=== PATIENT | female | born 1990 | race American Indian/Alaskan Native ===

== ENCOUNTER 2017-09-12 23:28 | Emergency (ER) | payer SELFPAY ==
[2017-09-12 23:35] VITALS: BP 149/97
[2017-09-13] MEDS ORDERED: MOTRIN PO ONE (00:46)
--- NOTE | 2017-09-13 00:50 | Emergency Department Report ---
<[address] - Last Filed: 09/13/17 00:46> ED ENT HPI - General Chief complaint: Earache Stated complaint: LEFT EAR PAIN Time Seen by Provider: 09/13/17 00:46 Source: patient Mode of arrival: Ambulatory Limitations: No Limitations - History of Present Illness Initial comments: 27-year-old -Indian female comes in complaining of left ear pain since yesterday. Patient reports that she is using home remedy of (white vinegar and alcohol) after doing that her pain has worsened. Patient does report that she has in a prescription for amoxicillin twice a day but has not picked up the prescription from [facility]. Patient denies any fever or chills no nausea no vomiting no ear drainage no hearing loss. She has no known drug allergies currently takes no medications on a daily basis. MD complaint: ear pain -: days(s) (1) Location: L ear Severity scale (0 -10): 10 Quality: sharp, constant Consistency: constant Improves with: none Worsens with: other (using home remedies such as white vinegar and alcohol) Associated Symptoms: denies: fever, cough, gum swelling, toothache, pain with swallowing, sore throat, tinnitus, hearing loss, discharge from ear, rhinorrhea - Related Data Home Medications Medication Instructions Recorded Confirmed Last Taken Beclomethasone Dipropionate [Qvar 2 inhalation IH BID 07/24/15 08/12/15 10:00 80MCG] 2 Labetalol [Normodyne TAB] 300 mg PO BID 08/12/15 08/12/15 08/12/15 Previous Rx's Medication Instructions Recorded Last Taken Type Albuterol Sulfate [Ventolin HFA] 2 puff IH Q4H PRN #1 hfa.aer.ad 03/16/15 02:00 Rx 2 puff Ciprofloxacin/Hydrocortisone 3 drop OT BID 7 Days #1 bottle 09/13/17 Unknown Rx [Ciprofloxacin HC OTIC] Ibuprofen [Motrin 800 MG tab] 800 mg PO TID PRN #30 tablet 09/13/17 Unknown Rx Allergies Allergy/AdvReac Type Severity Reaction Status Date / Time No Known Allergies Allergy Verified 05/24/15 16:33 ED Dental HPI - General Chief complaint: Earache Stated complaint: LEFT EAR PAIN Time Seen by Provider: 09/13/17 00:46 Source: patient Mode of arrival: Ambulatory Limitations: No Limitations - Related Data Home Medications Medication Instructions Recorded Confirmed Last Taken Beclomethasone Dipropionate [Qvar 2 inhalation IH BID 07/24/15 08/12/15 10:00 80MCG] 2 Labetalol [Normodyne TAB] 300 mg PO BID 08/12/15 08/12/15 08/12/15 Previous Rx's Medication Instructions Recorded Last Taken Type Albuterol Sulfate [Ventolin HFA] 2 puff IH Q4H PRN #1 hfa.aer.ad 03/16/15 02:00 Rx 2 puff Ciprofloxacin/Hydrocortisone 3 drop OT BID 7 Days #1 bottle 09/13/17 Unknown Rx [Ciprofloxacin HC OTIC] Ibuprofen [Motrin 800 MG tab] 800 mg PO TID PRN #30 tablet 09/13/17 Unknown Rx Allergies Allergy/AdvReac Type Severity Reaction Status Date / Time No Known Allergies Allergy Verified 05/24/15 16:33 ED Review of Systems ROS: Stated complaint: LEFT EAR PAIN Other details as noted in HPI Comment: All other systems reviewed and negative ENT: ear pain ED Past Medical Hx - Past Medical History Hx Hypertension: No Hx Congestive Heart Failure: No Hx Diabetes: No Hx Deep Vein Thrombosis: No Hx Renal Disease: Yes Hx Sickle Cell Disease: No Hx Headaches / Migraines: Yes Hx Seizures: No Hx Asthma: Yes Hx COPD: No Hx HIV: No Additional medical history: reactive airway disease. Preclampsia with last preg. Ab0 - Surgical History Additional Surgical History: left ankle--ligament repair - Social History Smoking Status: Never Smoker Substance Use Type: None - Medications Home Medications: Home Medications Medication Instructions Recorded Confirmed Last Taken Type Albuterol Sulfate [Ventolin HFA] 2 puff IH Q4H PRN #1 hfa.aer.ad 03/16/1507/24/15 02:00 Rx 2 puff Beclomethasone Dipropionate [Qvar 2 inhalation IH BID 07/24/15 08/12/15 10:00 History 80MCG] 2 Labetalol [Normodyne TAB] 300 mg PO BID 08/12/15 08/12/15 08/12/15 History Ciprofloxacin/Hydrocortisone 3 drop OT BID 7 Days #1 bottle 09/13/17 Unknown Rx [Ciprofloxacin HC OTIC] Ibuprofen [Motrin 800 MG tab] 800 mg PO TID PRN #30 tablet 09/13/17 Unknown Rx ED Physical Exam - General Limitations: No Limitations General appearance: alert, in no apparent distress - Head Head exam: Present: atraumatic, normocephalic - Eye Eye exam: Present: PERRL, EOMI - Expanded ENT Exam Expanded TM/Canal exam: Erythema: Left TM, Effusion: Left TM, Loss of Landmarks: Left TM , Canal Tenderness: Left TM - Neck Neck exam: Present: normal inspection, full ROM. Absent: lymphadenopathy - Respiratory Respiratory exam: Present: normal lung sounds bilaterally. Absent: respiratory distress - Cardiovascular Cardiovascular Exam: Present: regular rate, normal rhythm. Absent: systolic murmur, diastolic murmur, rubs, gallop ED Course Vital Signs 09/12/17 09/12/17 09/13/17 23:28 23:52 00:49 Temperature 98.9 F 98.9 F Pulse Rate 83 81 Respiratory 18 18 18 Rate Blood Pressure 149/97 149/97 O2 Sat by Pulse 98 98 Oximetry ED Medical Decision Making - Medical Decision Making Patient's been evaluated by this provider fast track. We'll give patient ibuprofen 800 mg now for pain management. Discussed the patient to fill the prescription for amoxicillin from [facility]. We'll prescribe patient ear drops for external otitis. Critical care attestation.: If time is entered above; I have spent that time in minutes in the direct care of this critically ill patient, excluding procedure time. ED Disposition Disposition: DC-01 TO HOME OR SELFCARE Is pt being admited?: No Does the pt Need Aspirin: No Condition: Stable Instructions: Otitis Externa (ED), Otitis Media (ED) Additional Instructions: Start her amoxicillin prescription that she will bulk picker from [facility] as well as used eyedrops antibiotics for your left ear. If her symptoms persist or gets worse please follow up with her primary care provider. Prescriptions: Ciprofloxacin/Hydrocortisone [Ciprofloxacin HC OTIC] 3 drop OT BID 7 Days #1 bottle Ibuprofen [Motrin 800 MG tab] 800 mg PO TID PRN #30 tablet PRN Reason: Pain Referrals: PRIMARY CARE, [Primary Care Provider] - 3-5 Days [facility] [Provider Group] - 3-5 Days Forms: Accompanied Note, Work/School Release Form(ED) <FATEMEH WILLETT - Last Filed: 09/13/17 11:33> ED Medical Decision Making - Medical Decision Making I was available for consultations at all times during the patient stay. I did not personally see and was not involved in the care of the patient. Shan Willett MD
== END 2017-09-13 01:00 | disposition home or self-care (01) ==
LOC: ED 23:28
DX: H92.02 Otalgia, left ear (principal); J45.909 Unspecified asthma, uncomplicated; G43.909 Migraine, unspecified, not intractable, without status migrainosus
CPT/HCPCS: 99282

== ENCOUNTER 2017-12-13 12:01 | Emergency (ER) | payer SELFPAY ==
[2017-12-13] MEDS ORDERED: TYLENOL PO ONE (15:20)
--- NOTE | 2017-12-13 15:23 | Emergency Department Report ---
Chief Complaint: Nausea/Vomiting/Diarrhea Stated Complaint: SICK FEELING/HEAD ACHE Time Seen by Provider: 12/13/17 15:12 - HPI History of Present Illness: 27-year-old AA female presents to the emergency department with complaint of a dull persistent posterior headache. She denies any vision change, vomiting, fever or neurological deficits. Patient does present with some elevated blood pressure and says she only has a history of hypertension during with preeclampsia. She denies being currently but says it is possible. She has not taken anything for her symptoms. Her sedation. Currently it is 4 out of 10 in intensity. - ROS Review of Systems: Positive for headache, nausea without vomiting Negative for vomiting, fever, photophobia or vision change - Exam Vital Signs: Vital Signs 12/13/17 12:11 Temperature 98.8 F Pulse Rate 84 Respiratory 16 Rate Blood Pressure 172/102 O2 Sat by Pulse 98 Oximetry Physical Exam: Pupils equal and reactive to light bilaterally. Extraocular motion intact. No nystagmus. Heart and lung sounds are normal to auscultation. Patient is awake and oriented. MSE screening note: Focused history and physical exam performed. Due to findings the following was ordered: Patient will be given some Tylenol to try and treat her headache. She will have a test. If the pain does not resolve, will consider imaging. We 'll continue to monitor the blood pressure. ED Disposition for MSE Condition: Stable Referrals: PRIMARY CARE, [Primary Care Provider] - 3-5 Days
[2017-12-13 15:48] LABS: HCG Qualitative,Urine Positive (Negative)
--- NOTE | 2017-12-13 16:00 | Emergency Department Report ---
ED Dysuria HPI - HPI Chief Complaint: Nausea/Vomiting/Diarrhea Stated Complaint: SICK FEELING/HEAD ACHE SUSPECTS SHE MAY BE Time Seen by Provider: 12/13/17 15:12 Duration: 3 Days Severity: None Symptoms: Dysuria: No, Frequency: No, Suprapubic Pain: No, Flank Pain: No, Fever : No, Hematuria: No, Abdominal Pain: No, Previous UTI's: No Other History: NAUSEA AND HEADACHE ED Review of Systems ROS: Stated complaint: SICK FEELING/HEAD ACHE Other details as noted in HPI Comment: All other systems reviewed and negative Constitutional: denies: chills, fever Eyes: denies: eye pain ENT: denies: ear pain Respiratory: denies: cough Cardiovascular: denies: chest pain Endocrine: see HPI. denies: excessive sweating Gastrointestinal: nausea. denies: abdominal pain, vomiting Genitourinary: denies: urgency, dysuria, frequency, hematuria, discharge Musculoskeletal: denies: back pain Skin: denies: rash, lesions Neurological: headache. denies: weakness Psychiatric: denies: anxiety, depression Hematological/Lymphatic: denies: easy bleeding ED Past Medical Hx - Past Medical History Previous Medical History?: Yes Hx Hypertension: No Hx Congestive Heart Failure: No Hx Diabetes: No Hx Deep Vein Thrombosis: No Hx Renal Disease: Yes Hx Sickle Cell Disease: No Hx Headaches / Migraines: Yes Hx Seizures: No Hx Asthma: Yes Hx COPD: No Hx HIV: No Additional medical history: reactive airway disease. Preclampsia with last preg. Ab0 - Surgical History Past Surgical History?: Yes Additional Surgical History: left ankle--ligament repair - Social History Smoking Status: Never Smoker Substance Use Type: None - Medications Home Medications: Home Medications Medication Instructions Recorded Confirmed Last Taken Type Albuterol Sulfate [Ventolin HFA] 2 puff IH Q4H PRN #1 hfa.aer.ad 03/16/1507/24/15 02:00 Rx 2 puff Beclomethasone Dipropionate [Qvar 2 inhalation IH BID 07/24/15 08/12/15 10:00 History 80MCG] 2 Labetalol [Normodyne TAB] 300 mg PO BID 08/12/15 08/12/15 08/12/15 History Ciprofloxacin/Hydrocortisone 3 drop OT BID 7 Days #1 bottle 09/13/17 Unknown Rx [Ciprofloxacin HC OTIC] Ibuprofen [Motrin 800 MG tab] 800 mg PO TID PRN #30 tablet 09/13/17 Unknown Rx Dysuria Exam - Exam General: Vital signs noted. No distress. Alert and acting appropriately. Exam: Yes Moist Mucous Membranes, No CVA Tenderness, No Abdominal Tenderness, No Rigidity or Guarding Exam: ABC INTACT. BP SLIGHTLY INC. OBESE AND ANXIOUS. . LMP 8-15. NO VAG BLEED OR DC. "HAD A FEELING". 1 CHILD OF HYPOPLASTIC LV. GOING THRU DIVORCE. TO SEE OB THIS WEEK Labs: Lab Results 12/13/17 12/13/17 Range/Units 12:15 Unknown POC Glucose 81 (70-105) Urine HCG, Qual Positive A (Negative) ED Course Vital Signs 12/13/17 12:11 Temperature 98.8 F Pulse Rate 84 Respiratory 16 Rate Blood Pressure 172/102 O2 Sat by Pulse 98 Oximetry - Reevaluation(s) Reevaluation #1: 12/13/17 16:17 PT GIVEN RESULTS OF UPREG FATHER AT BEDSIDE WILL SEE OB THIS WEEK ED Medical Decision Making - Medical Decision Making NO ABD PAIN OR BLEEDING - Differential Diagnosis POS PREG TEST- CONFIRMED HER SUSP Critical care attestation.: If time is entered above; I have spent that time in minutes in the direct care of this critically ill patient, excluding procedure time. ED Disposition Clinical Impression: state, incidental, Elevated blood pressure reading Disposition: DC-01 TO HOME OR SELFCARE Is pt being admited?: No Does the pt Need Aspirin: No Condition: Stable Instructions: (ED) Additional Instructions: FOLLOW UP WITH OBGYN THIS WEEK MONITOR BLOOD PRESSURE Referrals: YEE DOWNS MD [Staff Physician] - 3-5 Days PRIMARY CARE, [Primary Care Provider] - 3-5 Days Time of Disposition: 16:18
[2017-12-13] MEDS ORDERED: ZOFRAN PO ONE (16:06)
[2017-12-13] MEDS ORDERED: ZOFRAN ODT ONE (16:12)
[2017-12-13] MEDS ORDERED: ZOFRAN ODT PO ONE (17:00)
[2017-12-13 18:03] VITALS: BP 164/96
== END 2017-12-13 16:18 | disposition home or self-care (01) ==
LOC: ED 12:01
DX: R30.0 Dysuria (principal); R03.0 Elevated blood-pressure reading, without diagnosis of hypertension; Z33.1 Pregnant state, incidental
CPT/HCPCS: 81025; 82962; 99283; Q0162

== ENCOUNTER 2017-12-21 10:17 | Emergency (ER) | payer MEDICAID ==
[2017-12-21 10:28] VITALS: BP 148/97
[2017-12-21 12:06] LABS: Basophils % (Auto) 0.1 % (0.0-1.8); Eosinophils # (Auto) 0.1 K/mm3 (0.0-0.4); Eosinophils % (Auto) 0.6 % (0.0-4.3); Hemoglobin 13.4 gm/dl (10.1-14.3); Lymphocytes # (Auto) 2.5 K/mm3 (1.2-5.4); Lymphocytes % (Auto) 21.8 % (13.4-35.0); Mean Corpuscular HGB Conc 34 % (30-34); Mean Corpuscular Hemoglobin 30 pg (28-32); Mean Corpuscular Volume 88 fl (79-97); Monocytes # (Auto) 0.7 K/mm3 (0.0-0.8); Monocytes % (Auto) 5.8 % (0.0-7.3); Platelet Count 217 K/mm3 (140-440); Red Blood Count 4.45 M/mm3 (3.65-5.03); Red Cell Distribution Width 13.6 % (13.2-15.2)
[2017-12-21 12:25] LABS: Alanine Aminotransferase 22 units/L (7-56); Albumin 4.1 g/dL (3.9-5); BUN/Creatinine Ratio 10; Blood Urea Nitrogen 6 mg/dL (7-17); Calcium 9.5 mg/dL (8.4-10.2); Hemolysis Index 5
--- NOTE | 2017-12-21 12:38 | Emergency Department Report ---
ED General Adult HPI - General Chief complaint: Vaginal Bleeding Stated complaint: POSSIBLE MISCARRIAGE Time Seen by Provider: 12/21/17 10:36 Source: patient Mode of arrival: Ambulatory Limitations: No Limitations - History of Present Illness Initial comments: Patient presents to emergency department with a chief complaint of lower abdominal cramping times one week. Patient states she recently took a home test and it was positive. Patient states today she had some clots in the toilet at the use in the bathroom but denies any luis vaginal bleeding. Patient states that this is her third and has 1 live . -: Gradual Location: abdomen Radiation: non-radiation Severity scale (0 -10): 1 Consistency: constant Improves with: none Worsens with: none Associated Symptoms: denies other symptoms Treatments Prior to Arrival: none - Related Data Home Medications Medication Instructions Recorded Confirmed Last Taken Labetalol [Normodyne TAB] 300 mg PO BID 08/12/15 08/12/15 08/12/15 Previous Rx's Medication Instructions Recorded Last Taken Type Albuterol Sulfate [Ventolin HFA] 2 puff IH Q4H PRN #1 hfa.aer.ad 03/16/15 02:00 Rx 2 puff Ciprofloxacin/Hydrocortisone 3 drop OT BID 7 Days #1 bottle 09/13/17 Unknown Rx [Ciprofloxacin HC OTIC] Ibuprofen [Motrin 800 MG tab] 800 mg PO TID PRN #30 tablet 09/13/17 Unknown Rx Allergies Allergy/AdvReac Type Severity Reaction Status Date / Time No Known Allergies Allergy Verified 05/24/15 16:33 ED Review of Systems ROS: Stated complaint: POSSIBLE MISCARRIAGE Other details as noted in HPI Comment: All other systems reviewed and negative Constitutional: denies: chills, fever Eyes: denies: eye pain, eye discharge, vision change ENT: denies: ear pain, throat pain Respiratory: denies: cough, shortness of breath, wheezing Cardiovascular: denies: chest pain, palpitations Endocrine: no symptoms reported Gastrointestinal: denies: abdominal pain, nausea, diarrhea Genitourinary: denies: urgency, dysuria, discharge Musculoskeletal: denies: back pain, joint swelling, arthralgia Skin: denies: rash, lesions Neurological: denies: headache, weakness, paresthesias Psychiatric: denies: anxiety, depression Hematological/Lymphatic: denies: easy bleeding, easy bruising ED Past Medical Hx - Past Medical History Hx Hypertension: No Hx Congestive Heart Failure: No Hx Diabetes: No Hx Deep Vein Thrombosis: No Hx Renal Disease: Yes Hx Sickle Cell Disease: No Hx Headaches / Migraines: Yes Hx Seizures: No Hx Asthma: Yes Hx COPD: No Hx HIV: No Additional medical history: reactive airway disease. Preclampsia with last preg. Ab0 - Surgical History Additional Surgical History: left ankle--ligament repair - Social History Smoking Status: Never Smoker Substance Use Type: None - Medications Home Medications: Home Medications Medication Instructions Recorded Confirmed Last Taken Type Albuterol Sulfate [Ventolin HFA] 2 puff IH Q4H PRN #1 hfa.aer.ad 03/16/1507/24/15 02:00 Rx 2 puff Labetalol [Normodyne TAB] 300 mg PO BID 08/12/15 08/12/15 08/12/15 History Ciprofloxacin/Hydrocortisone 3 drop OT BID 7 Days #1 bottle 09/13/17 Unknown Rx [Ciprofloxacin HC OTIC] Ibuprofen [Motrin 800 MG tab] 800 mg PO TID PRN #30 tablet 09/13/17 Unknown Rx ED Physical Exam - General Limitations: No Limitations General appearance: alert, in no apparent distress - Head Head exam: Present: atraumatic, normocephalic - Eye Eye exam: Present: normal appearance - ENT ENT exam: Present: mucous membranes moist - Neck Neck exam: Present: normal inspection - Respiratory Respiratory exam: Present: normal lung sounds bilaterally. Absent: respiratory distress, wheezes, rales, rhonchi - Cardiovascular Cardiovascular Exam: Present: regular rate, normal rhythm. Absent: systolic murmur, diastolic murmur, rubs, gallop - GI/Abdominal GI/Abdominal exam: Present: soft, normal bowel sounds. Absent: distended, tenderness - Rectal Rectal exam: Present: deferred - External exam: Present: other (deferred) Speculum exam: Present: other (deferred) Bi-manual exam: Present: other (deferred) - Extremities Exam Extremities exam: Present: normal inspection - Back Exam Back exam: Present: normal inspection - Neurological Exam Neurological exam: Present: alert, oriented X3, CN II-XII intact. Absent: motor sensory deficit - Psychiatric Psychiatric exam: Present: normal affect, normal mood - Skin Skin exam: Present: warm, dry, intact, normal color. Absent: rash ED Course Vital Signs 12/21/17 10:25 Temperature 99.6 F Pulse Rate 16 L Respiratory 18 Rate Blood Pressure 148/97 O2 Sat by Pulse 98 Oximetry ED Medical Decision Making - Lab Data Result diagrams: 12/21/17 11:42 12/21/17 11:00 - Medical Decision Making Discussed results with patient Critical care attestation.: If time is entered above; I have spent that time in minutes in the direct care of this critically ill patient, excluding procedure time. ED Disposition Clinical Impression: Threatened miscarriage in early Disposition: DC-01 TO HOME OR SELFCARE Is pt being admited?: No Does the pt Need Aspirin: No Condition: Stable Instructions: Threatened Miscarriage (ED) Additional Instructions: return if worse Referrals: PRIMARY CAREMD [Primary Care Provider] - 3-5 Days MIMA ORME MD [Staff Physician] - 3-5 Days Time of Disposition: 14:25
[2017-12-21 13:32] LABS: Bilirubin,Urine NEG (Negative); Blood,Urine SM (Negative); Color,Urine Yellow (Yellow); Mucus,Urine FEW /HPF; RBC,Urine < 1.0 /HPF (0.0-6.0); Urobilinogen,Urine < 2.0 mg/dL (<2.0); WBC,Urine < 1.0 /HPF (0.0-6.0)
--- NOTE | 2017-12-21 14:10 | Ultrasound Report ---
FINAL REPORT EXAM: US OB < = 14 WEEKS FETUS HISTORY: ABDOMINAL PAIN IN TECHNIQUE: Grayscale and color doppler ultrasound imaging of the pelvis was performed transabdominally and transvaginally. PRIORS: None. FINDINGS: Uterus: The uterus is homogeneous in echogenicity without focal mass. The uterus measures 10.0 x 6.5 x 5.5 centimeters. An intrauterine gestational sac, yolk sac and embryonic pole were seen. Embryonic cardiac activity was detected at 96-99 beats per minute. Estimated gestational age is 6 weeks and 4 days with an BRIGID of 08/12/2018. Mean sac diameter is 22.1 millimeters. [place]-rump length is 2.5 millimeters. No evidence of subchorionic hemorrhage. Ovaries: A 1.6 centimeter right ovarian cyst is seen. A 1.4 centimeter left ovarian cyst is seen. Normal flow is seen to the ovaries. The right ovary measures 4.6 x 2.3 x 3.0 centimeters. The left ovary measures 4.2 x 1.7 x 2.6 centimeters. Free fluid: None. IMPRESSION: Live intrauterine measuring at 6 weeks and 4 days gestational age with an BRIGID of 08/12/2018.
== END 2017-12-21 14:28 | disposition home or self-care (01) ==
LOC: ED 10:17
DX: O20.0 Threatened abortion (principal); G43.909 Migraine, unspecified, not intractable, without status migrainosus; J45.909 Unspecified asthma, uncomplicated; Z3A.01 Less than 8 weeks gestation of pregnancy
CPT/HCPCS: 36415; 76801; 76817; 80053; 81001; 84702; 85025; 99284

== ENCOUNTER 2018-06-03 03:45 | Outpatient (CLI) | payer MEDICAID ==
[2018-06-03] MEDS ORDERED: LACTATED RINGERS 1,000 ML IV ONE (04:07)
[2018-06-03 05:39] LABS: Hematocrit 35.2 % (30.3-42.9); Hemoglobin 11.9 gm/dl (10.1-14.3); Mean Corpuscular HGB Conc 34 % (30-34); Mean Corpuscular Volume 90 fl (79-97); Platelet Count 233 K/mm3 (140-440); Red Cell Distribution Width 13.6 % (13.2-15.2)
[2018-06-03 05:40] LABS: Bilirubin,Urine NEG (Negative); Blood,Urine SM (Negative); Color,Urine Yellow (Yellow); Mucus,Urine FEW /HPF; Urobilinogen,Urine < 2.0 mg/dL (<2.0); WBC,Urine < 1.0 /HPF (0.0-6.0)
[2018-06-03 05:48] LABS: Amphetamine Screen,Urine PRESUMPTIVE NEGATIVE; Benzodiazepines Screen,Urine PRESUMPTIVE NEGATIVE; Cannabinoid Screen,Urine PRESUMPTIVE NEGATIVE; Cocaine Screen,Urine PRESUMPTIVE NEGATIVE; Methadone Screen,Urine PRESUMPTIVE NEGATIVE; Opiate Screen,Urine PRESUMPTIVE NEGATIVE
[2018-06-03 05:51] LABS: Alanine Aminotransferase 19 units/L (7-56); Uric Acid 3.8 mg/dL (3.5-7.6)
[2018-06-03 06:22] LABS: Hepatitis C Virus Antibody Non-Reactive (NonReactive)
--- NOTE | 2018-06-03 07:55 | Event Note ---
Date: 06/03/18 pt reports nose bleed has improved (had nasal ablation age 5 for chronic nosebleeds.) Pt reports proteinuria and CHTN during this . Pt states she received regular care with Mariama Mercado and plans on delivery at [facility]. Will consult Dr. Messer and attempt to get records.
[2018-06-03 08:53] VITALS: BP 145/90
--- NOTE | 2018-06-03 09:27 | Event Note ---
<DIANA STEWART - Last Filed: 06/03/18 09:25> Date: 06/03/18 Pt denies BRIONES/ visual changes or epigastric pain. reviewed pt's status with dr. Lopez, plan for c/s home. pt to continue Labetalaol 100mg BID (rx given) and call [facility] for appointment. <BRADFORD LOPEZ - Last Filed: 06/03/18 13:17> Plan for D/C home
== END 2018-06-03 10:26 | disposition home or self-care (01) ==
LOC: TRG 03:45 → LD 03:55 → TRG 10:26
PROVIDERS: ATTEND Obstetrics & Gynecology
DX: O47.03 False labor before 37 completed weeks of gestation, third trimester (principal); O13.3 Gestational [pregnancy-induced] hypertension without significant proteinuria, third trimester; O46.8X3 Other antepartum hemorrhage, third trimester; O99.513 Diseases of the respiratory system complicating pregnancy, third trimester; J45.909 Unspecified asthma, uncomplicated; R04.0 Epistaxis; Z3A.30 30 weeks gestation of pregnancy
CPT/HCPCS: 36415; 59025; 80307; 81001; 82565; 83615; 84450; 84460; 84550; 85027; 86592; 86706; 86762; 86803; 87806

== ENCOUNTER 2020-04-18 09:10 | Emergency (ER) | payer MEDICAID ==
[2020-04-18 09:35] VITALS: BP 128/82
--- NOTE | 2020-04-18 09:38 | Emergency Department Report ---
ED Shortness of Breath HPI - General Stated Complaint: COVID +/SOB Time Seen by Provider: 04/18/20 09:32 - History of Present Illness Initial Comments: 30-year-old female, history of asthma, Covid positive, presents to ED with shortness of breath. Patient states her symptoms began 6 days ago on 04/12/20, including fever, cough, dyspnea. She went to an urgent care the next day and tested positive. Patient states at the urgent care she was given IV fluids, Rocephin, and Decadron. Patient was given a prescription for azithromycin and prednisone. Patient states she is on her last day of azithromycin. She reports she has been using her albuterol at home, however she is having some worsening dyspnea on exertion and right-sided chest pain, so EMS was called this morning Complaint: shortness of breath -: week(s) (1) Severity: moderate Consistency: intermittent Improves With: rest Worsens With: exertion Known History Of: asthma Context: recent URI Associated Symptoms: fever, cough Treatments Prior to Arrival: bronchodilator - Related Data Home Oxygen Therapy: No Home Medications Medication Instructions Recorded Confirmed Last Taken labetaloL [Labetalol 100mg TAB] 300 mg PO BID 08/12/15 08/12/15 08/12/15 Previous Rx's Medication Instructions Recorded Last Taken Type Albuterol Sulfate [Ventolin HFA] 2 puff IH Q4H PRN #1 hfa.aer.ad 03/16/15 07/24/15 02:00 Rx 2 puff Ciprofloxacin/Hydrocortisone 3 drop OT BID 7 Days #1 bottle 09/13/17 Unknown Rx [Ciprofloxacin HC OTIC] Ibuprofen [Motrin 800 MG tab] 800 mg PO TID PRN #30 tablet 09/13/17 Unknown Rx labetaloL [Labetalol 100mg TAB] 100 mg PO BID #60 tablet 06/03/18 Unknown Rx Allergies Allergy/AdvReac Type Severity Reaction Status Date / Time No Known Allergies Allergy Verified 05/24/15 16:33 ED Review of Systems ROS: Stated complaint: COVID +/SOB Other details as noted in HPI Comment: All other systems reviewed and negative Constitutional: fever Respiratory: cough, shortness of breath Cardiovascular: chest pain ED Past Medical Hx - Past Medical History Hx Hypertension: Yes (CHTN) Hx Congestive Heart Failure: No Hx Diabetes: Yes (gestational) Hx Deep Vein Thrombosis: No Hx Renal Disease: No Hx Sickle Cell Disease: No Hx Headaches / Migraines: Yes Hx Seizures: No Hx Asthma: Yes (06/03/18) Hx COPD: No Hx HIV: No Additional medical history: reactive airway disease. Preclampsia with last preg. Ab0 - Surgical History Additional Surgical History: left ankle--ligament repair - Social History Smoking Status: Never Smoker - Medications Home Medications: Home Medications Medication Instructions Recorded Confirmed Last Taken Type Albuterol Sulfate [Ventolin HFA] 2 puff IH Q4H PRN #1 hfa.aer.ad 03/16/15 08/12/15 07/24/15 02:00 Rx 2 puff labetaloL [Labetalol 100mg TAB] 300 mg PO BID 08/12/15 08/12/15 08/12/15 History Ciprofloxacin/Hydrocortisone 3 drop OT BID 7 Days #1 bottle 09/13/17 Unknown Rx [Ciprofloxacin HC OTIC] Ibuprofen [Motrin 800 MG tab] 800 mg PO TID PRN #30 tablet 09/13/17 Unknown Rx labetaloL [Labetalol 100mg TAB] 100 mg PO BID #60 tablet 06/03/18 Unknown Rx ED Physical Exam - General General appearance: alert, in no apparent distress, obese - Head Head exam: Present: atraumatic, normocephalic - Eye Eye exam: Present: normal appearance, EOMI - ENT ENT exam: Present: mucous membranes moist - Neck Neck exam: Present: normal inspection - Respiratory Respiratory exam: Present: normal lung sounds bilaterally. Absent: respiratory distress - Cardiovascular Cardiovascular Exam: Present: regular rate, normal rhythm - GI/Abdominal GI/Abdominal exam: Present: soft. Absent: distended, tenderness - Extremities Exam Extremities exam: Present: normal inspection - Neurological Exam Neurological exam: Present: alert, oriented X3 - Psychiatric Psychiatric exam: Present: normal affect, normal mood - Skin Skin exam: Present: warm, dry, intact, normal color ED Course Vital Signs 04/18/20 09:30 Temperature 98.8 F Pulse Rate 88 Respiratory 22 Rate Blood Pressure 128/82 O2 Sat by Pulse 99 Oximetry ED Medical Decision Making - Lab Data Result diagrams: 04/18/20 10:12 04/18/20 10:12 - Radiology Data Radiology results: report reviewed, image reviewed - Medical Decision Making 30-year-old female who tested positive for COVID-19 5 days ago presents to ED with shortness of breath. Patient is not hypoxic here in the ED, does not appear to be in any respiratory distress. CTA chest was done because patient did report some right-sided chest pain. CT shows some evidence, however there is no PE present. Patient has already been given prescription for prednisone and azithromycin. She will be discharged at this time. She currently is able to monitor her O2 sats with her iPhone watch. Prone positioning advised. Return precautions given. - Differential Diagnosis COVID-19, pneumonia, PE Critical care attestation.: If time is entered above; I have spent that time in minutes in the direct care of this critically ill patient, excluding procedure time. ED Disposition Clinical Impression: Pneumonia due to COVID-19 virus Disposition: DC- TO HOME OR SELFCARE Is pt being admited?: No Condition: Stable Instructions: COVID-19, Prevent the Spread of COVID-19 if You Are Sick - CDC, Bacterial Pneumonia (ED) Additional Instructions: Your oxygen level is normal today. Return to ER if oxygen drops below 90%. Remember tp prone (lay on your stomach) as much as possible when you are laying down. Referrals: PATRICIA HEAD MD [Primary Care Provider] - 3-5 Days Time of Disposition: 12:51
[2020-04-18 11:04] LABS: Basophils % (Auto) 0.1 % (0.0-1.8); Hematocrit 43.7 % (30.3-42.9); Hemoglobin 14.7 gm/dl (10.1-14.3); Lymphocytes # (Auto) 1.7 K/mm3 (1.2-5.4); Mean Corpuscular HGB Conc 34 % (30-34); Mean Corpuscular Volume 90 fl (79-97); Monocytes # (Auto) 0.4 K/mm3 (0.0-0.8); Monocytes % (Auto) 6.1 % (0.0-7.3); Platelet Count 185 K/mm3 (140-440); Red Blood Count 4.86 M/mm3 (3.65-5.03); Red Cell Distribution Width 12.7 % (13.2-15.2)
[2020-04-18 11:14] LABS: INR 0.94 (0.87-1.13); Partial Thromboplastin Time 28.6 Sec. (24.2-36.6)
[2020-04-18 11:25] LABS: Alanine Aminotransferase 46 units/L (7-56); Albumin 3.7 g/dL (3.9-5); BUN/Creatinine Ratio 9; Blood Urea Nitrogen 7 mg/dL (7-17); Hemolysis Index 6
[2020-04-18 11:47] LABS: Bilirubin,Direct < 0.2 mg/dL (0-0.2)
--- NOTE | 2020-04-18 12:25 | XRay Report ---
CHEST 1 VIEW 04/18/2020 11:19 AM INDICATION / CLINICAL INFORMATION: Shortness of breath, COVID+. COMPARISON: None available. FINDINGS: SUPPORT DEVICES: None. HEART / MEDIASTINUM: No significant abnormality. LUNGS / PLEURA: No significant pulmonary or pleural abnormality. No pneumothorax. ADDITIONAL FINDINGS: No significant additional findings. IMPRESSION: 1. No acute findings. Signer Name: Carroll Sandoval MD Signed: 04/18/2020 12:21 PM Workstation Name: [id number]
--- NOTE | 2020-04-18 12:38 | Cat Scan Report ---
CTA CHEST WITH IV CONTRAST INDICATION: Chest pain and shortness of breath. TECHNIQUE: Axial CT images were obtained through the chest after injection of 100 mL Omnipaque 350 IV contrast. 3 plane MIP reconstructions were produced. All CT scans at this location are performed using CT dose reduction for ALARA by means of automated exposure control. COMPARISON: None available. FINDINGS: Pulmonary Arteries: No pulmonary emboli. Lungs: There are mild patchy peripheral groundglass opacities. Trachea and Bronchi: No significant abnormality. Heart and Pericardium: No significant abnormality. Vasculature: No significant abnormality. Lymphatics: No lymphadenopathy. Additional Findings: None. Upper Abdomen: No acute findings. Skeletal Structures: No acute findings or aggressive bone lesions. IMPRESSION: 1. No CT evidence for pulmonary embolism. 2. Mild patchy peripheral groundglass opacities in both lungs likely indicating viral pneumonia. Signer Name: Carroll Sandoval MD Signed: 04/18/2020 12:33 PM Workstation Name: [id number]
== END 2020-04-18 13:00 | disposition home or self-care (01) ==
LOC: ED 09:10
DX: J12.82 Pneumonia due to coronavirus disease 2019 (principal); I10 Essential (primary) hypertension; E11.9 Type 2 diabetes mellitus without complications; G43.909 Migraine, unspecified, not intractable, without status migrainosus; J45.909 Unspecified asthma, uncomplicated; Z98.890 Other specified postprocedural states; Z79.899 Other long term (current) drug therapy
CPT/HCPCS: 36415; 71045; 71275; 80048; 80076; 84703; 85025; 85379; 85610; 85730; 99285; Q9967